=== PATIENT | female | born 1990 | race Caucasian/White ===

== ENCOUNTER → 2021-02-16 | Outpatient (CLI) | payer MEDICAID ==
[~2021-02-16] MED LIST: ACET1TAB43 PO; DOCU100C37 PO; FERR325T18 PO; IBUP-1773 PO; PNV1TABL81 PO
--- NOTE | 2021-02-16 13:19 | Diagnostic Imaging Report ---
INDICATION: survey. TECHNIQUE: Multiple real-time grayscale images were obtained over the gravid uterus. COMPARISON: None FINDINGS: There is a single live fetus in a breech presentation. heart rate was recorded at 144 bpm. Placenta is anterior. Amniotic fluid volume is normal. Cervical length is approximately 4.7 cm. kidneys, bladder and stomach are unremarkable. brain is unremarkable. There is a four-chamber heart. There is a three-vessel cord with normal insertion. spine images are somewhat limited due to position. Biometrical measurements are as follows: Biparietal 4.13 cm, age 18 weeks 4 days. Head circumference 15.27 cm, age 18 weeks 2 days. Abdominal circumference 12.05 cm, age 17 weeks 6 days. Femur length 2.54 cm, age 17 weeks 5 days. Sonographic estimate age: 18 weeks 1 days. Sonographic estimated date of delivery: 07/19/2021. Estimated Weight: 210 gm (+/- 31 gm). LMP percentile: 41%. heart rate: 144 beats per minute. number: 1 of 1. IMPRESSION: Single live IUP 18 weeks 1 day gestational age. Estimated date of confinement sonographically is 07/19/2021. survey is unremarkable although spine images are somewhat limited due to position. Dictated by: Dictated on workstation # [id number]
== END ==
LOC: RAD 10:00
PROVIDERS: ATTEND Nurse Practitioner Women's Health
DX: Z34.02 Encounter for supervision of normal first pregnancy, second trimester (principal); Z3A.18 18 weeks gestation of pregnancy
CPT/HCPCS: 76805

== ENCOUNTER 2021-07-13 02:02 | Inpatient (IN) | payer MEDICAID ==
[~2021-07-13] VITALS: Ht 160 cm; Wt 85.3 kg
[2021-07-13] VITALS (34 sets, daily range): BP systolic 96–143; BP diastolic 55–92
[2021-07-13] MEDS ORDERED: D5 LR IV SOLUTION 1,000 ML IV SCH (02:45)
[2021-07-13] MEDS ORDERED: LACTATED RINGERS 1,000 ML IV SCH (02:45)
[2021-07-13 02:52] LABS: BASOPHILS % (AUTO) 0 % (0-10); EOSINOPHILS % (AUTO) 0 % (0-10); HEMATOCRIT 36 % (35-52); HEMOGLOBIN 11.9 g/dL (11.5-16.0); LYMPHOCYTES # (AUTO) 0.5 10^3/uL (1.0-4.0); LYMPHOCYTES % (AUTO) 6 % (12-44); MEAN CORPUSCULAR HEMOGLOBIN 30 pg (25-34); MEAN CORPUSCULAR HGB CONC 33 g/dL (32-36); MEAN CORPUSCULAR VOLUME 91 fL (80-99); MEAN PLATELET VOLUME 10.9 fL (9.0-12.2); MONOCYTES # (AUTO) 0.7 10^3/uL (0.0-1.0); MONOCYTES % (AUTO) 7 % (0-12); NEUTROPHILS # (AUTO) 8.4 10^3/uL (1.8-7.8); NEUTROPHILS % (AUTO) 86 % (42-75); PLATELET COUNT 174 10^3/uL (130-400); WHITE BLOOD COUNT 9.7 10^3/uL (4.3-11.0)
[2021-07-13] MEDS ORDERED: D5 LR IV SOLUTION 1,000 ML IV ONE (03:01)
[2021-07-13] MEDS ORDERED: fentaNYL 2 mcg/ml BUPIVA 0.125 100 ML ONE (03:01)
[2021-07-13] MEDS ORDERED: fentaNYL INJ 100 MCG/2 ML AMP ONE (03:03)
[2021-07-13] MEDS ORDERED: BUPIVACAINE 0.25% 30 ML (SENSORCAINE) VIAL ONE (03:03)
[2021-07-13 03:38] LABS: NEUTROPHILS % (MANUAL) 90 %
[2021-07-13 03:39] LABS: LYMPHOCYTES % (MANUAL) 6 %; MONOCYTES % (MANUAL) 4 %
[2021-07-13] MEDS ORDERED: CATHETER FLUSH 10 ML SYR IV PRN (04:15)
[2021-07-13] MEDS ORDERED: LACTATED RINGERS 1,000 ML IV ONE (04:15)
[2021-07-13] MEDS ORDERED: fentaNYL 2 mcg/ml BUPIVA 0.125 100 ML IV SCH (04:15)
[2021-07-13] MEDS ORDERED: NALOXONE 0.4 MG/ML 1 ML (NARCAN) VIAL IV PRN ×2 (04:15→08:15)
[2021-07-13] MEDS ORDERED: OXYTOCIN PRE-MIX DRIP 500 ML IV ONE (07:18)
--- NOTE | 2021-07-13 07:22 | History & Physical-OB ---
OB - Chief Complaint & HPI Date/Time Date of Admission: Date of Admission: Jul 13, 2021 at 02:42 Date seen by a Provider: Jul 13, 2021 Time Seen by a Provider: 07:00 Chief Complaint/History OB-Reason for Admission/Chief: Onset of Labor Hx : 2 Hx Para: 1 Expected Date of Delivery: Jul 21, 2021 Gestational Age in Weeks: 38 Gestational Age in Days: 6 Other reason for admission: Spontaneous labor Admission Nurse Assessment Rev: Yes History of Labs O+/-, VDRL non-reactive, HBsAg non-reactive, HIV non-reactive, rubella immune, HCV Ab negative, GBS negative Allergies and Home Medications Allergies Coded Allergies: No Known Allergies (Verified Allergy, Unknown, 02/22/15) Patient Home Medication List Home Medication List Reviewed: Yes Acetaminophen with Codeine (Acetaminophen-Cod #3 Tablet) 1 Each Tablet, 1-2 TAB PO Q4H PRN for MODERATE TO SEVERE PAIN Prescribed by: ADRY MACARIO on 02/23/15 1404 Docusate Sodium (Docusate Sodium) 100 Mg Capsule, 100 MG PO BID Prescribed by: ADRY MACARIO on 02/23/15 1404 Ferrous Sulfate (Ferrous Sulfate) 325 Mg Tablet, 325 MG PO DAILY Prescribed by: ADRY MACARIO on 02/23/15 1404 Ibuprofen (Ibuprofen) 600 Mg Tablet, 600 MG PO Q6H Prescribed by: ADRY MACARIO on 02/23/15 1404 Pnv No.122/Iron/Folic Acid ( Multi Tablet) 1 Each Tablet, 1 EACH PO DAILY, (Reported) Entered as Reported by: RAMON HESS on 02/22/15 0660 OB - History Hx of Present Care: Yes Obstetrical Complications: None Medical Complications: None Information Induced Hypertension: No Maternal Gestational Diabetes: No Hemorrhage: No Obstetrical History Hx Termination: No Hx Multiple Gestation: No Hx Ectopic : No Hx Stillbirth: No Hx Complication: No Hx Induced Hypertens: No Hx Maternal Gestational Diabet: No Hx Hemorrhage: No Delivery History Hx Dystocia: No Hx Forceps Assisted Delivery: No Hx Vacuum Extraction Assisted: No Hx Placenta Abnormality: No Hx Distress: No Hx Large For Gestational Age I: No Hx Small for Gestational Age I: No Hx Section: No Hx Vaginal Delivery Post C-Sec: No Hx Blood Disorders: No Adverse Rxn to Tranfusion: No Patient Past Medical History none Social History/Family History Smoking Cessation: Current every day smoker Immunizations Influenza Vaccine Up-to-Date: No; Not Current Hepatitis A: Yes Hepatitis B: Yes Tetanus Booster (TDap): More than 5yrs OB - Admission Exam Physical Exam Vitals: Vital Signs 07/13/21 02:40 Temp 36.8 Pulse 86 Resp 18 B/P (MAP) 106/75 (85) Pulse Ox 98 O2 Delivery Room Air HEENT: EOMI Heart: Other (normal rate and peripheral perfusion) Lungs: Equal (non-labored breathing, symmetric chest rise) Abdomen: Gravid Extremities: Normal Reflexes: Normal Cervical Dilatation: 10cm Effacement: 100% Membranes: Intact Heart Rate: 150's Accelerations: Accelerations Present Decelerations: No Decelerations Short Term Variability: Present Correction Variability: Average (6-25) Contractions on Admission: < 5 Minutes Apart Labs Laboratory Tests Test 07/13/21 02:40 Range/Units White Blood Count 9.7 4.3-11.0 10^3/uL Red Blood Count 3.92 3.80-5.11 10^6/uL Hemoglobin 11.9 11.5-16.0 g/dL Hematocrit 36 35-52 % Mean Corpuscular Volume 91 80-99 fL Mean Corpuscular Hemoglobin 30 25-34 pg Mean Corpuscular Hemoglobin Concent 33 32-36 g/dL Red Cell Distribution Width 13.9 10.0-14.5 % Platelet Count 174 130-400 10^3/uL Mean Platelet Volume 10.9 9.0-12.2 fL Immature Granulocyte % (Auto) 0 % Neutrophils (%) (Auto) 86 H 42-75 % Lymphocytes (%) (Auto) 6 L 12-44 % Monocytes (%) (Auto) 7 0-12 % Eosinophils (%) (Auto) 0 0-10 % Basophils (%) (Auto) 0 0-10 % Neutrophils # (Auto) 8.4 H 1.8-7.8 10^3/uL Lymphocytes # (Auto) 0.5 L 1.0-4.0 10^3/uL Monocytes # (Auto) 0.7 0.0-1.0 10^3/uL Eosinophils # (Auto) 0.0 0.0-0.3 10^3/uL Basophils # (Auto) 0.0 0.0-0.1 10^3/uL Immature Granulocyte # (Auto) 0.0 0.0-0.1 10^3/uL Neutrophils % (Manual) 90 % Lymphocytes % (Manual) 6 % Monocytes % (Manual) 4 % Band Neutrophils % OB - Assessment/Plan/Diagnosis Assessment Assessment: active labor Admission Dx Spontaneous Labor Admission Status: Inpatient Order (span 2 midnights) Reason for Inpatient Admission: Labor and delivery, and care Plan Plan: Expectant Management HEAVEN JORGENSEN MD Jul 13, 2021 07:22
[2021-07-13] MEDS ORDERED: LIDOCAINE/EPI 2% 1:200,00 (XYLOCAINE) 10 ML VIAL ONE (07:51)
--- NOTE | 2021-07-13 08:11 | OB Labor & Delivery Record ---
L&D History Date of Service Date of Service: Jul 13, 2021 History Expected Date of Delivery: Jul 21, 2021 Gestational Age in Weeks: 38 Hx : 2 Hx Para: 1 Complications Events: Routine care Operative Indications (Cesarea: N/A-Vaginal Delivery Intrapartal Events: None L&D Stage1 Stage One Onset of Labor - Date: Jul 13, 2021 Monitors and Tracing Monitor Mode: External Heart Rate: 145 Monitor Accelerations: Uniform Monitor Decelerations: Variable Station: +1 [facility] Variability: Average (6-10) Short Term Variability: Present Presentation: Vertex Vital Signs VS - Last 72 Hours, by Label 07/13/21 07/13/21 07/13/21 07/13/21 02:40 02:40 02:45 03:15 Temp 36.8 36.8 Pulse 86 86 77 78 Resp 18 18 18 18 B/P (MAP) 106/75 (85) 112/65 (81) 142/81 (101) Pulse Ox 98 98 97 O2 Delivery Room Air 07/13/21 07/13/21 07/13/21 07/13/21 03:18 03:21 03:24 03:28 Pulse 76 74 77 81 Resp 18 18 18 18 B/P (MAP) 136/77 (96) 131/81 (98) 139/80 (99) 109/67 (81) Pulse Ox 98 98 100 98 07/13/21 07/13/21 07/13/21 07/13/21 03:30 03:45 04:00 04:15 Temp 36.7 Pulse 93 65 75 64 Resp 18 18 18 18 B/P (MAP) 103/59 (74) 106/63 (77) 104/62 (76) 108/65 (79) Pulse Ox 99 100 100 100 07/13/21 07/13/21 07/13/21 07/13/21 04:30 04:45 05:00 05:15 Pulse 63 72 63 59 Resp 18 18 18 18 B/P (MAP) 103/58 (73) 114/74 (87) 99/56 (70) 113/64 (80) Pulse Ox 96 97 98 96 07/13/21 07/13/21 07/13/21 07/13/21 05:30 05:45 06:00 06:15 Pulse 54 61 65 71 Resp 18 18 18 18 B/P (MAP) 112/70 (84) 108/62 (77) 109/63 (78) 96/66 (76) Pulse Ox 96 95 97 97 07/13/21 07/13/21 07/13/21 07/13/21 06:30 06:45 07:00 07:15 Pulse 68 62 79 81 Resp 18 18 18 18 B/P (MAP) 96/66 (76) 108/67 (81) 113/74 (87) 130/92 (105) Pulse Ox 99 97 97 100 Rupture of Membranes Spontaneous Ruture of Membrane: No Amniotic Membrane Rupture Time: 709 Amniotic Membrane Fluid Desc.: Clear Vaginal Bleeding Description: Normal Show Induction/Anesthesia Epidural Cath Placement - Time: 318 Progress/Notes Patient admitted in spontaneous labor. AROM performed once complete. She had no augmentation otherwise, and received an epidural after arrival. L&D Stage2 Stage Two Stage II Date: Jul 13, 2021 Monitors and Tracing Monitor Mode: External Heart Rate: 145 Monitor Accelerations: Uniform Monitor Decelerations: Variable [facility] Variability: Average (6-10) Short Term Variability: Present Position: Right Occiput Anterior Presentation: Vertex Cord Descript/Complications Cord Vessel Description: 3 Vessels Delivery Type Infant Delivery Method: Spontaneous Vaginal Anterior Shoulder: Right Episiotomy/Perineal Laceration Laceraction(s)/Extensions: Yes Episiotomy Description: Periurethral Extnsion/lac Degree (describe repair) supraurethral laceration repaired using 3-0 rapide in usual fashion Condition of Infant Delivery 1 minute Comment: 8 5 minute Comment: 9 Notes Live female infant weight 6lbs 3 oz Condition of Infant Condition of : Living Exam: No Observed Abnormalities Resuscitation Resuscitation: N/A - Spontaneous Resp L&D Stage3 Stage Three Stage III Date: Jul 13, 2021 Pictocin Pitocin Administration Comment: 30 mu wide open after delivery of placetna Placenta Delivery Placenta Delivery: Spontaneous Delivery Summary Summary Estimated blood loss (mL): 350 Attending at delivery: Adry Macario DO Condition of Delivery Examined: Cervix Examined, Uterus Explored Post Hemorrhage: No Condition of Mother stable Condition of (s) stable ADRY MACARIO DO Jul 13, 2021 08:11
[2021-07-13] MEDS: OXYTOCIN PRE-MIX DRIP 500 ML IV SCH ×2 (08:14→08:26)
--- NOTE | 2021-07-13 08:14 | Discharge Inst-Women's Service ---
Discharge Inst-Women's Serv Depart Medication/Instructions New, Converted or Re-Newed RX: Transmitted to Pharmacy Final Diagnosis PPD 1 NVD Problems Reviewed?: Yes Consults/Follow Up Additional Follow Up: Yes Orders/Referrals Dr. Macario in 6 weeks Activity Activity: Activity as Tolerated Driving Instructions: No Driving for 1 Week NO SMOKING: NO SMOKING Nothing Inside Vagina: No Douching, No Delacroix, No Tampons Diet Discharge Diet: No Restrictions Symptoms to Report to : Bleeding Excessive, Pain Increased, Fever Over 101 Degrees F, Vaginal Bleeding Increase, Questions/Concerns For Any Problems or Questions: Contact Your Physician ADRY MACARIO DO Jul 13, 2021 08:14
[2021-07-13] MEDS ORDERED: IBUP-844 PO (08:15)
[2021-07-13] MEDS ORDERED: TETANUS,DIPTH,PERTUSS P/F (BOOSTRIX) 0.5 ML VIAL IM ONE (08:15)
[2021-07-13] MEDS ORDERED: PNV1TABL67 PO (08:15)
[2021-07-13] MEDS ORDERED: ACHD5005 PO (08:15)
[2021-07-13] MEDS ORDERED: BENZ78AE5 TP (08:15)
[2021-07-13] MEDS ORDERED: DOCU100C37 PO (08:15)
[2021-07-13] MEDS ORDERED: BENZOCAINE/MENTHOL (DERMOPLAST) 56 ML CAN TP PRN (08:15)
[2021-07-13] MEDS ORDERED: MEASLES,MUMPS,RUBELLA 1 EA INJ SQ ONE (08:15)
[2021-07-13] MEDS ORDERED: WITCH HAZEL(TUCKS) 40 EA JAR TOP PRN (08:15)
[2021-07-13] MEDS ORDERED: FERR325T24 PO (08:15)
[2021-07-13] MEDS: FERROUS SULF 325 MG (IRON) TAB PO SCH (10:13)
[2021-07-13] MEDS: DOCUSATE SODIUM 100 MG (COLACE) CAP PO SCH ×2 (10:13→20:50)
[2021-07-13] MEDS: IBUPROFEN 600 MG (MOTRIN) TAB PO SCH ×2 (12:01→17:55)
[2021-07-13] MEDS ORDERED: CATHETER FLUSH 10 ML SYR IV SCH (14:00)
[2021-07-14] MEDS: IBUPROFEN 600 MG (MOTRIN) TAB PO SCH ×4 (00:13→18:25)
[2021-07-14 00:32] VITALS: BP 120/68
[2021-07-14 05:16] VITALS: BP 138/88
[2021-07-14 06:22] LABS: BASOPHILS % (AUTO) 0 % (0-10); EOSINOPHILS % (AUTO) 1 % (0-10); HEMATOCRIT 35 % (35-52); LYMPHOCYTES # (AUTO) 1.9 10^3/uL (1.0-4.0); LYMPHOCYTES % (AUTO) 24 % (12-44); MEAN CORPUSCULAR HEMOGLOBIN 30 pg (25-34); MEAN CORPUSCULAR HGB CONC 32 g/dL (32-36); MEAN CORPUSCULAR VOLUME 94 fL (80-99); MEAN PLATELET VOLUME 11.7 fL (9.0-12.2); MONOCYTES # (AUTO) 0.7 10^3/uL (0.0-1.0); MONOCYTES % (AUTO) 8 % (0-12); NEUTROPHILS # (AUTO) 5.1 10^3/uL (1.8-7.8); NEUTROPHILS % (AUTO) 66 % (42-75); PLATELET COUNT 169 10^3/uL (130-400); WHITE BLOOD COUNT 7.7 10^3/uL (4.3-11.0)
[2021-07-14 08:13] VITALS: BP 118/79
[2021-07-14] MEDS: FERROUS SULF 325 MG (IRON) TAB PO SCH (08:16)
[2021-07-14] MEDS: DOCUSATE SODIUM 100 MG (COLACE) CAP PO SCH ×2 (08:16→21:34)
[2021-07-14] MEDS: PRENATAL VITAMIN 1 EA TAB PO SCH (08:16)
--- NOTE | 2021-07-14 09:57 | Postpartum Progress Note ---
Note Note Day # 1 Subjective: Patient is without complaints. Ambulating, voiding. Tolerating a regular diet without nausea or vomiting. Normal lochia. Pain is well controlled with oral pain medications. Objective: Physical Exam: General - Alert and oriented, no apparent distress Abdomen - Soft, appropriately tender to palpation, non-distended, fundus firm at umbilicus Extremities - no edema, negative Lexi's bilaterally Assessment: Post- day # 1, status post vaginal delivery. Recovering well, hemodynamically stable Acute blood loss anemia Plan: Routine care. Encourage breast feeding. Encourage ambulation. Ferrous sulfate supplementation. Plan for discharge today Vitals - Labs Vital Signs - I&O Vital Signs Date Time Temp Pulse Resp B/P (MAP) Pulse Ox O2 Delivery O2 Flow Rate FiO2 07/14/21 08:13 36.1 81 16 118/79 (92) 98 07/14/21 05:16 36.3 70 16 138/88 (105) 100 07/14/21 00:32 36.1 72 16 120/68 (85) 98 07/13/21 20:51 36.3 75 116/74 (88) 97 07/13/21 16:47 36.4 66 18 122/65 (84) 97 Room Air 07/13/21 12:09 37.1 80 18 118/71 (87) 98 Room Air I & O 07/14/21 07:00 Intake Total 980 ml Output Total 1000 ml Balance -20 ml Labs Laboratory Tests 07/14/21 05:36: White Blood Count 7.7, Red Blood Count 3.69L, Hemoglobin 11.0L, Hematocrit 35, Mean Corpuscular Volume 94, Mean Corpuscular Hemoglobin 30, Mean Corpuscular Hemoglobin Concent 32, Red Cell Distribution Width 14.0, Platelet Count 169, Mean Platelet Volume 11.7, Immature Granulocyte % (Auto) 1, Neutrophils (%) (Auto) 66, Lymphocytes (%) (Auto) 24, Monocytes (%) (Auto) 8, Eosinophils (%) (Auto) 1, Basophils (%) (Auto) 0, Neutrophils # (Auto) 5.1, Lymphocytes # (Auto) 1.9, Monocytes # (Auto) 0.7, Eosinophils # (Auto) 0.0, Basophils # (Auto) 0.0, Immature Granulocyte # (Auto) 0.1 MARIVEL YUAN APRN Jul 14, 2021 09:57
[2021-07-14] MEDS: HYDROcodone/APAP 5 MG/325 MG (LORTAB) TAB PO PRN ×2 (12:40→21:34)
[2021-07-14 15:16] VITALS: BP 129/76
[2021-07-14 21:36] VITALS: BP 131/81
[2021-07-15 05:38] VITALS: BP 128/72
[2021-07-15] MEDS: IBUPROFEN 600 MG (MOTRIN) TAB PO SCH ×3 (06:03→12:16)
[2021-07-15] MEDS: FERROUS SULF 325 MG (IRON) TAB PO SCH (09:14)
[2021-07-15] MEDS: DOCUSATE SODIUM 100 MG (COLACE) CAP PO SCH (09:14)
[2021-07-15] MEDS: PRENATAL VITAMIN 1 EA TAB PO SCH (09:14)
[2021-07-15 12:14] VITALS: BP 139/76
--- NOTE | 2021-07-15 15:05 | Postpartum Progress Note ---
Note Note Day # 2 Subjective: Patient is without complaints. Ambulating, voiding. Tolerating a regular diet without nausea or vomiting. Normal lochia. Pain is well controlled with oral pain medications. Objective: Physical Exam: General - Alert and oriented, no apparent distress Abdomen - Soft, appropriately tender to palpation, non-distended, fundus firm at umbilicus Extremities - no edema, negative Lexi's bilaterally Assessment: Post- day # 2, status post vaginal delivery. Recovering well, hemodynamically stable Acute blood loss anemia Plan: Routine care. Encourage breast feeding. Encourage ambulation. Ferrous sulfate supplementation. Plan for discharge today Vitals - Labs Vital Signs - I&O Vital Signs Date Time Temp Pulse Resp B/P (MAP) Pulse Ox O2 Delivery O2 Flow Rate FiO2 07/15/21 12:14 36.5 72 16 139/76 (97) 100 Room Air 07/15/21 05:38 36.2 72 16 128/72 (90) 97 07/14/21 21:36 36.0 82 16 131/81 (98) 98 07/14/21 15:16 36.4 70 16 129/76 (93) 97 MARIVEL YUAN [employer] Jul 15, 2021 15:05
== END 2021-07-15 13:05 | disposition home or self-care (01) | DRG 806 ==
LOC: WSo 02:02 → LDRP 02:24 → WSo 02:40 → LDRP 02:42
PROVIDERS: ADMIT Obstetrics & Gynecology; ATTEND Obstetrics & Gynecology
PROC: 10E0XZZ Delivery of Products of Conception, External Approach (ICD-10-PCS; principal; 2021-07-13)
PROC: 10907ZC Drainage of Amniotic Fluid, Therapeutic from Products of Conception, Via Natural or Artificial Opening (ICD-10-PCS; 2021-07-13)
PROC: 0UQMXZZ Repair Vulva, External Approach (ICD-10-PCS; 2021-07-13)
DX: O99.334 Smoking (tobacco) complicating childbirth (principal); D62 Acute posthemorrhagic anemia; Z37.0 Single live birth; F17.210 Nicotine dependence, cigarettes, uncomplicated; Z3A.38 38 weeks gestation of pregnancy; O71.82 Other specified trauma to perineum and vulva; O90.81 Anemia of the puerperium
CPT/HCPCS: 36415; 85007; 85025; 85027; 86850; 86900; 86901; 99212

== ENCOUNTER → 2022-11-24 | Outpatient (CLI) | payer MEDICAID ==
[~2022-11-24] MED LIST changes: +ACET-11 PO; -ACET1TAB43 PO; +ACHD5005 PO; +BENZ78AE5 TP; +FERR325T24 PO; +IBUP-844 PO; +PNV1TABL67 PO
--- NOTE | 2022-11-24 19:38 | Diagnostic Imaging Report ---
INDICATION: Palpable lump in left breast. FINDINGS: Sonographic interrogation of the area of palpable abnormality in the left breast was performed. This corresponds to the 10:30 to 11:00 location, 4 to 5 cm from the nipple. Just below the skin surface there is a somewhat ovoid echogenic nodule measuring 1.1 x 0.5 x 1.5 cm. This has the appearance of a lipoma. There is a small adjacent cyst. No other abnormality is seen. No internal vascularity is identified. IMPRESSION: Probable lipoma at the area of palpable abnormality at the 10:30 to 11:00 location of left breast. No other significant abnormality is seen. ACR BI-RADS Category 2: Benign findings. Result letter will be mailed to the patient. Note: At least 10% of breast cancer is not imaged by mammography. Dictated by: Dictated on workstation # [id number]
--- NOTE | 2022-11-24 20:27 | Diagnostic Imaging Report ---
INDICATION: Palpable lump in left breast. COMPARISON: No prior studies are available for comparison. EXAMINATION: 2D and 3D bilateral diagnostic mammography was performed with CAD. FINDINGS: Both breasts are heterogeneously dense, limiting the sensitivity of mammography. No mass or malignant-appearing microcalcifications are seen. Specifically, at the area of palpable abnormality in the upper inner left breast, no underlying abnormality is detected. Axillae are unremarkable. IMPRESSION: No mammographic features suspicious for malignancy are identified. Even so, sonographic interrogation of the area of palpable abnormality in the upper inner left breast is recommended and will be performed today. ACR BI-RADS Category 0: Incomplete. (Needs additional imaging evaluation). Result letter will be mailed to the patient. Note: At least 10% of breast cancer is not imaged by mammography. Dictated by: Dictated on workstation # [id number]
== END ==
LOC: RAD 13:15
PROVIDERS: ATTEND Nurse Practitioner Women's Health
DX: N63.22 Unspecified lump in the left breast, upper inner quadrant (principal)
CPT/HCPCS: 76642; 77066; G0279; 77062